=== PATIENT | female | born 2000 | race African-American/Black ===

== ENCOUNTER 2024-12-07 02:53 | Emergency (ER) | payer SELFPAY ==
[2024-12-07] MEDS ORDERED: Azithromycin 250 MG TAB ONE (03:14)
[2024-12-07] MEDS ORDERED: Benzonatate 100 MG CAP ONE (03:23)
== END 2024-12-07 03:39 | disposition home or self-care (01) ==
LOC: CSHERS 02:53
DX: H65.90 Unspecified nonsuppurative otitis media, unspecified ear (principal)
CPT/HCPCS: 99283